=== PATIENT | male | born 1975 | race Caucasian/White ===

== ENCOUNTER 2021-07-16 08:48 | Emergency (ER) | payer OTHER ==
[~2021-07-16 08:48] MED LIST: ACETAMINOPHEN500 M1 PO; ALLOPURINOL100 MG PO; BUSPIRONE HCL10 MG PO; CHOLESTEROL MED PO; COLACE100 MG PO; MOTRIN600 MG PO; OXY-IR 5MG5 MG PO; PROZAC20 MG PO
[2021-07-16 10:18] LABS: BILIRUBIN NEGATIVE (NEGATIVE); BLOOD NEGATIVE Ery/uL (NEGATIVE); CLARITY CLEAR (CLEAR); COLOR YELLOW (YELLOW); GLUCOSE (U) NORMAL (NORMAL); LEUKOCYTES NEGATIVE Leu/uL (NEGATIVE); NITRITE NEGATIVE (NEGATIVE); PROTEIN NEGATIVE (NEGATIVE); SPECIFIC GRAVITY 1.025 (1.001-1.030); UROBILINOGEN 0.2 mg/dL (0.2-1.0)
== END 2021-07-16 11:24 | disposition home or self-care (01) ==
LOC: FER 08:48
PROVIDERS: Emergency Medicine
DX: M50.123 Cervical disc disorder at C6-C7 level with radiculopathy (principal); M48.02 Spinal stenosis, cervical region
CPT/HCPCS: 70450; 72125; 72131; 81003; 93005

== ENCOUNTER 2022-05-11 17:23 | Emergency (ER) | payer OTHER ==
[2022-05-11 18:28] LABS: BASOPHIL 0.3 % (0-2); EOSINOPHIL 0.9 % (0-5); HCT 38.6 % (42.0-52.0); HGB 12.2 g/dl (13.2-18.0); LYMPHOCYTE 18.3 % (15-48); MCH 25.8 pg (25.0-31.0); MCHC 31.6 g/dL (32.0-36.0); MCV 81.8 fL (78.0-100.0); MONOCYTE 6.9 % (0-12); MPV 9.3 fL (6.0-9.5); NEUTROPHIL 73.3 % (41-80); NRBC 0; PLT 252 K/uL (150-400); RBC 4.72 M/uL (4.70-6.00); WBC 9.2 K/uL (4.0-10.5)
[2022-05-11 18:34] LABS: INR 0.97 (0.9-1.2); PROTHROMBIN TIME 12.6 SECONDS (11.9-13.9); PTT 24.6 SECONDS (24.9-34.6)
[2022-05-11 18:43] LABS: ALBUMIN 3.4 g/dL (3.4-5.0); BILIRUBIN - TOTAL 0.2 mg/dL (0.2-1.0); BUN/CREAT RATIO (CALC) 13.1 RATIO; CREATININE 1.22 mg/dL (0.67-1.17); GLOBULIN (CALCULATION) 3.2 g/dL; POTASSIUM 3.9 mmol/L (3.5-5.1); TOTAL PROTEIN 6.6 g/dL (6.4-8.2)
[2022-05-11] MEDS ORDERED: NORVASC5 MG PO (20:23)
== END 2022-05-11 20:29 | disposition home or self-care (01) ==
LOC: FER 17:23
PROVIDERS: Internal Medicine
DX: R07.89 Other chest pain (principal); I10 Essential (primary) hypertension; Z79.899 Other long term (current) drug therapy
CPT/HCPCS: 36415; 71045; 80053; 84484; 85025; 85379; 85610; 85730; 93005